=== PATIENT | male | born 1960 | race Caucasian/White ===

== ENCOUNTER 2018-05-05 12:57 | Emergency (ER) | payer OTHER ==
[2018-05-05] MEDS: KETOROLAC 60 MG INJ IM (14:41)
[2018-05-05] MEDS: HYDROCODONE/APAP (5/325) TAB PO (14:41)
[2018-05-05 14:55] LABS: ADD MAN DIFF? NO
[2018-05-05 14:57] LABS: WHITE BLOOD COUNT 11.5 10^3/ul (4.8-10.8)
[2018-05-05 14:57] LABS: BASOPHILS % 0.3 % (0.0-2.0); EOSINOPHILS # 0.1 10^3/ul (0.0-0.5); EOSINOPHILS % 0.7 % (0.0-7.0); HEMATOCRIT 49.9 % (42.0-52.0); LYMPHOCYTES # 3.1 10^3/ul (0.8-2.9); LYMPHOCYTES % 26.6 % (15.0-51.0); MEAN CORPUSCULAR HEMOGLOBIN 30.2 pg (29.0-33.0); MEAN CORPUSCULAR HGB CONC 34.1 g/dl (32.0-37.0); MEAN CORPUSCULAR VOLUME 88.8 fl (82.0-101.0); MEAN PLATELET VOLUME 9.7 fl (7.4-10.4); MONOCYTE # 0.7 10^3/ul (0.3-0.9); MONOCYTES % 5.9 % (0.0-11.0); NEUTROPHIL # 7.6 10^3/ul (1.6-7.5); NEUTROPHILS % 66.3 % (39.0-77.0); PLATELET COUNT 213 10^3/UL (140-415); RED BLOOD COUNT 5.62 10^6/ul (4.70-6.10); RED CELL DISTRIBUTION WIDTH 12.9 % (11.5-14.5)
[2018-05-05] MEDS: DEXAMETHASONE 4 MG TAB PO (15:11)
[2018-05-05 15:25] LABS: ALANINE AMINOTRANSFERASE 30 IU/L (13-69); ALBUMIN 4.6 g/dl (3.3-4.9); ALBUMIN/GLOBULIN RATIO 1.24; ALKALINE PHOSPHATASE 92 IU/L (42-121); ANION GAP 11 (5-13); ASPARTATE AMINO TRANSFERASE 27 IU/L (15-46); BILIRUBIN,INDIRECT 0.5 mg/dl (0-1.1); BILIRUBIN,TOTAL 0.5 mg/dl (0.2-1.3); BLOOD UREA NITROGEN 14 mg/dl (7-20); CALCIUM 9.5 mg/dl (8.4-10.2); CARBON DIOXIDE 30 mmol/L (21-31); CHLORIDE 101 mmol/L (97-110); CREATININE 0.82 mg/dl (0.61-1.24); Estimated GFR > 60 mL/min (>60); GLUCOSE 89 mg/dl (70-220); POTASSIUM 4.6 mmol/L (3.5-5.1); SODIUM 142 mmol/L (135-144); TOTAL PROTEIN 8.3 g/dl (6.1-8.1); URIC ACID 4.7 mg/dl (3.1-7.9)
== END 2018-05-05 16:15 | disposition home or self-care (01) ==
LOC: FTE 12:57
DX: M79.675 Pain in left toe(s) (principal); I10 Essential (primary) hypertension
CPT/HCPCS: 36415; 73630-LT; 80053; 84560; 85025; 96372; 99284-25